=== PATIENT | female | born 1945 | race Caucasian/White ===

== ENCOUNTER → 2016-12-28 | Outpatient (CLI) | payer MEDICARE ==
--- NOTE | 2016-12-28 14:22 | XR ---
EXAMINATION TYPE: XR chest 2V DATE OF EXAM: 12/28/2016 2:18 PM COMPARISON: 03/19/2013 INDICATION: Acute bronchitis TECHNIQUE: 2 view chest FINDINGS: The heart size is normal. The pulmonary vasculature is normal. The lungs are clear. IMPRESSION: 1. No acute pulmonary process.
--- NOTE | 2016-12-28 16:41 | BD ---
EXAMINATION TYPE: MG DEXA axial skeleton. DATE OF EXAM: 12/28/2016 2:07 PM CLINICAL HISTORY: Height: 64 inch Weight: 134 FRAX RISK QUESTIONS: Alcohol (3 or more units per day): no Family History (Parent hip fracture): no Glucocorticoids (More than 3mos): no (Ex: prednisone, prednisolone, methylprednisolone, dexamethasone, and hydrocortisone). History of Fracture in Adulthood: yes, both lower legs Secondary Osteoporosis: 1. Type 1 Diabetes: no 2. Hyperthyroidism: no 3. Menopause before 45: yes, hysterectomy age 34 4. Malnutrition: no 5. Chronic liver disease: no Rheumatoid Arthritis: no Current Tobacco Use: no RISK FACTORS HISTORY OF: History of Fracture: yes When: both lower legs... one in 2009 & the other in 2010 about age 64 & 65 Family History of Osteoporosis: perhaps aunt on paternal side Drink Alcohol: occasionally glass of wine Active: yes Diet low in dairy products/other sources of calcium: at least one serving a day Postmenopausal woman: yes Take estrogen and/or progesterone medications: no Lost more than 2 inches in height since high school: no Frequent falls: no Poor Health: no Hyperparathyroidism: no Adrenal Insufficiency: no MEDICATIONS: Prednisone or other steroids: no Thyroid Medications: no Osteoporosis Medications: not now Which medication: unsure How Long: only tried once, had reaction Additional Medications: blood pressure, cholesterol EXAM MEASUREMENTS: Bone mineral densitometry was performed using the [employer] System. Bone mineral density as measured about the Lumbar spine is: ----- L1-L4(G/cm2): 1.291 T Score Values are as follows: ----- L2: 1.4 ----- L3: 3.7 ----- L4: 0.6 ----- L1-L4: 0.9 Bone mineral density has: Increased 18.3% since study of: 09/26/2002 Bone mineral density about the R hip (g/cm2): 0.842 Bone mineral density about the L hip (g/cm2): 0.865 T Score values are as follows: -----R Neck: -1.4 -----L Neck: -1.2 -----R Intertrochanter: -0.9 -----L Intertrochanter: -0.8 Bone mineral density has: Increased 0.9% since study of: 09/26/2002 IMPRESSION: 1. Osteopenia (T Score between -2.5 and -1 as noted by T score values There is slightly increased risk of fracture and the patient may be considered for treatment. Re-Screen 1-2 years. 2. Bone density is improved 18.3% within the lumbar spine from 09/26/2002. Bone density is improved 0. 9% within the bilateral hips compared to 2002 NOTE: T-SCORE=SD OF THE YOUNG ADULT MEAN.
--- NOTE | 2016-12-30 12:01 | MM ---
Reason for exam: screening (asymptomatic). Last mammogram was performed 1 year and 1 month ago. History: Patient is postmenopausal. Physical Findings: A clinical breast exam by your physician is recommended on an annual basis and results should be correlated with mammographic findings. MG 3D Screening Mammo W/Cad Bilateral CC and MLO view(s) were taken. Prior study comparison: December 01, 2015, bilateral MG screening mammo w CAD. November 28, 2014, bilateral MG screening mammo w CAD. November 04, 2013, bilateral digital screening mammo w/CAD. The breast tissue is heterogeneously dense. This may lower the sensitivity of mammography. No significant changes when compared with prior studies. ASSESSMENT: Negative, BI-RAD 1 RECOMMENDATION: Routine screening mammogram of both breasts in 1 year.
== END | disposition home or self-care (01) ==
LOC: RADMAMWWP 13:13
PROVIDERS: ATTEND Internal Medicine
DX: Z12.31 Encounter for screening mammogram for malignant neoplasm of breast (principal); J20.9 Acute bronchitis, unspecified; M85.80 Other specified disorders of bone density and structure, unspecified site
CPT/HCPCS: 71020; 77080; 77063; G0202

== ENCOUNTER → 2018-01-26 | Outpatient (CLI) | payer MEDICARE ==
--- NOTE | 2018-01-30 14:37 | MM ---
Reason for exam: screening (asymptomatic). Last mammogram was performed 1 year and 1 month ago. History: Patient is postmenopausal. Physical Findings: A clinical breast exam by your physician is recommended on an annual basis and results should be correlated with mammographic findings. MG 3D Screening Mammo W/Cad Bilateral CC and MLO view(s) were taken. Prior study comparison: December 28, 2016, bilateral MG 3d screening mammo w/cad. December 01, 2015, bilateral MG screening mammo w CAD. The breast tissue is heterogeneously dense. This may lower the sensitivity of mammography. There are typically benign round calcifications in both breasts. There is chronic nodularity in the left breast. Asymmetric breast tissue in the left medial position, stable. There is no discrete abnormality. ASSESSMENT: Benign, BI-RAD 2 RECOMMENDATION: Routine screening mammogram of both breasts in 1 year.
== END | disposition home or self-care (01) ==
LOC: RADMAMWWP 08:33
PROVIDERS: ATTEND Internal Medicine
DX: Z12.31 Encounter for screening mammogram for malignant neoplasm of breast (principal)
CPT/HCPCS: 77063; 77067

== ENCOUNTER → 2018-06-29 | Outpatient (CLI) | payer MEDICARE ==
--- NOTE | 2018-06-29 11:21 | XR ---
EXAMINATION TYPE: XR cervical spine comp DATE OF EXAM: 06/29/2018 CLINICAL HISTORY: pain COMPARISON: NONE TECHNIQUE: Frontal, lateral, oblique, swimmers, and open mouth view of the cervical spine are obtaine d. FINDINGS: The cervical spine is visualized in its entirety from C1 thru the top of T1 level. It is s atisfactory in alignment without evidence of acute fracture or dislocation. The pre-vertebral soft t issue appears within normal limits. Severe degenerative narrowing noted at C3-4 and C5-6. Ventral and dorsal spondylosis. The C1-C2 articulation is unremarkable on the open mouth view. The oblique imag es are within normal limits. IMPRESSION: No acute fracture or dislocation is seen in the cervical spine. ICD 10 NO FRACTURE, INITIAL EVALUATION
== END | disposition home or self-care (01) ==
LOC: RADXRMAIN 10:03
PROVIDERS: ATTEND Internal Medicine
DX: M47.892 Other spondylosis, cervical region (principal)
CPT/HCPCS: 72050

== ENCOUNTER → 2018-07-31 | Outpatient (CLI) | payer MEDICARE ==
--- NOTE | 2018-07-31 22:31 | MR ---
EXAMINATION TYPE: MR cervical spine wo con DATE OF EXAM: 07/31/2018 COMPARISON: None HISTORY: 72-year-old female with neck pain, Spondylosis TECHNIQUE: Multiplanar, multisequence images of the cervical spine were acquired. Findings: No craniocervical junction abnormality, predental space widening, or prevertebral soft tissue swellin g. A sclerotic Modic type II endplate changes at C5-C6 and to a lesser extent at C3-C4 with moderate mul tilevel degenerative disc disease characterized by disc desiccation, disc space narrowing, disc osteo phyte complex formation. Changes are greatest at C5-C6 and C3-C4. Multilevel facet and uncovertebral joint arthropathy with ligamentum flavum thickening. There is grade 1 retrolisthesis at C5-C6. At C2-C3, facet arthropathy particularly on the right causing mild neuroforaminal narrowing. No spina l canal stenosis. At C3-C4, there is disc osteophyte complex with contiguous uncovertebral joint and facet arthropathy, greater on the left. Changes result in moderate left and mild to moderate right neuroforaminal steno sis. There is overall mild spinal canal stenosis but without abutment or flattening of the cord. At C4-C5, uncovertebral joint and facet degenerative change without significant canal or foraminal st enosis. At C5-C6, broad-based discussed by complex with uncovertebral joint and facet degenerative changes as well as ligamentum flavum thickening. Changes result in moderate spinal canal stenosis with abutment and flattening of both the dorsal and ventral cord but no myelopathic cord signal change. Changes re sult in severe right and moderate to severe left neuroforaminal stenosis. At C6-C7, facet arthropathy without significant canal or foraminal stenosis. At C7-T1, facet arthropathy without significant canal or foraminal stenosis. No prevertebral or paravertebral soft tissue abnormality. IMPRESSION: 1. Moderate multilevel disc/endplate degenerative change. Additional multilevel facet and uncovertebr al joint arthropathy with ligamentum flavum thickening. 2. Changes result in grade 1 retrolisthesis at C5-C6 which also corresponds to the level of greatest degenerative disc disease. 3. At this level, C5-C6, there is a moderate spinal canal stenosis with abutment and flattening of jeff th the dorsal and ventral cord but no myelopathic cord signal change. 4. Mild overall spinal canal stenosis at C3-C4. 5. Variable neural foraminal stenoses as outlined above, moderate on the left at C3-C4, severe on the right at C5-C6, and moderate to severe on the left at C5-C6.
== END | disposition home or self-care (01) ==
LOC: RADMRIMAIN 07:06
PROVIDERS: ATTEND Internal Medicine
DX: M47.812 Spondylosis without myelopathy or radiculopathy, cervical region (principal); M48.02 Spinal stenosis, cervical region; M99.71 Connective tissue and disc stenosis of intervertebral foramina of cervical region; M46.92 Unspecified inflammatory spondylopathy, cervical region
CPT/HCPCS: 72141

== ENCOUNTER → 2019-01-24 | Outpatient (CLI) | payer MEDICARE ==
--- NOTE | 2019-01-24 15:40 | US ---
EXAMINATION TYPE: US carotid duplex BILAT DATE OF EXAM: 01/24/2019 COMPARISON: NONE CLINICAL HISTORY: I65.23 Occlusion and stenosis of bilateral carotid. HTN, No prev EXAM MEASUREMENTS: RIGHT: Peak Systolic Velocity (PSV) cm/sec ----- Right CCA: 73.8 ----- Right ICA: 75.6 ----- Right ECA: 97.4 ICA/CCA ratio: 1.0 RIGHT: End Diastole cm/sec ----- Right CCA: 23.2 ----- Right ICA: 30.2 ----- Right ECA: 10.6 LEFT: Peak Systolic Velocity (PSV) cm/sec ----- Left CCA: 77.6 ----- Left ICA: 85.3 ----- Left ECA: 94.1 ICA/CCA ratio: 1.1 LEFT: End Diastole cm/sec ----- Left CCA: 19.3 ----- Left ICA: 39.1 ----- Left ECA: 12.8 VERTEBRALS (direction of flow): Right Vertebral: Antegrade Left Vertebral: Antegrade Rhythm: Normal No wall thickening, elevated velocities or significant stenosis. Plaque seen in right distal CCA and bulb. IMPRESSION: Mild degree of grayscale atheromatous plaquing with no sonographically evident hemodynam ically significant stenosis within either visualized carotid arterial system. Criteria for Assigning % of Stenosis / Diameter reduction (Estimation based on the indirect measurements of the internal carotid artery velocities (ICA PSV). 1. Normal (no stenosis)=ICA PSV < 125 cm/s: ratio < 2.0: ICA EDV<40 cm/s. 2. Less than 50% stenosis=ICA PSV < 125 cm/s: ratio < 2.0: ICA EDV<40 cm/s. 3. 50 to 69% stenosis=ICA PSV of 125 to 230 cm/s: ration 2.0 ? 4.0: ICA EDV 40-100 cm/s. 4. Greater than 70% stenosis to near occlusion= ICA PSV > 230 cm/s: ratio > 4.0: ICA EDV > 100 cm/s. 5. Near occlusion= ICA PSV velocities may be low or undetectable: variable ratio and ICA EDV. 6. Total occlusion=unable to detect flow.
== END | disposition home or self-care (01) ==
LOC: RADUSWWP 14:42
PROVIDERS: ATTEND Internal Medicine
DX: I65.21 Occlusion and stenosis of right carotid artery (principal)
CPT/HCPCS: 93880

== ENCOUNTER → 2019-02-12 | Outpatient (CLI) | payer MEDICARE ==
--- NOTE | 2019-02-12 13:58 | BD ---
EXAMINATION TYPE: Axial Bone Density DATE OF EXAM: 02/12/2019 COMPARISON: 12/28/2016 CLINICAL HISTORY: M 80.0 Height: 64 Weight: 137.5 FRAX RISK QUESTIONS: Alcohol (3 or more units per day): no Family History (Parent hip fracture): no Glucocorticoids (More than 3mos): no (Ex: prednisone, prednisolone, methylprednisolone, dexamethasone, and hydrocortisone). History of Fracture in Adulthood: yes Secondary Osteoporosis: 1. Type 1 Diabetes: no 2. Hyperthyroidism: no 3. Menopause before 45: yes 4. Malnutrition: no 5. Chronic liver disease: no Rheumatoid Arthritis: no Current Tobacco Use: no RISK FACTORS HISTORY OF: Family History of Osteoporosis: yes Active: yes Diet low in dairy products/other sources of calcium: no Postmenopausal woman: age 34 hysterectomy Lost more than 2 inches in height since high school: no MEDICATIONS: hydralazine, metoprolol, hydrochlorothiazide, simvastatin Additional History: EXAM MEASUREMENTS: Bone mineral densitometry was performed using the [employer] System. Bone mineral density as measured about the Lumbar spine is: ----- L1-L4(G/cm2): 1.367 T Score Values are as follows: ----- L2: 0.8 ----- L3: 4.1 ----- L4: 3.2 ----- L1-L4: 1.6 Bone mineral density has: increased 6.8 % since study of: 12.28.2016 Bone mineral density about the R hip (g/cm2): 0.857 Bone mineral density about the L hip (g/cm2): 0.841 T Score values are as follows: -----R Neck: -1.3 -----L Neck: -1.4 -----R Total: -0.4 -----L Total: -0.4 Bone mineral density has: increased 1.7 % since study of: 12.28.2016 IMPRESSION: Osteopenia (T Score between -2.5 and -1). There is slightly increased risk of fracture and the patient may be considered for treatment. Re-Screen 2-5 years. NOTE: T-SCORE=SD OF THE YOUNG ADULT MEAN.
--- NOTE | 2019-02-13 10:42 | MM ---
Reason for exam: screening (asymptomatic). Last mammogram was performed 1 year and 1 month ago. History: Patient is postmenopausal. Physical Findings: A clinical breast exam by your physician is recommended on an annual basis and results should be correlated with mammographic findings. MG 3D Screening Mammo W/Cad Bilateral CC and MLO view(s) were taken. Prior study comparison: January 26, 2018, bilateral MG 3d screening mammo w/cad. December 28, 2016, bilateral MG 3d screening mammo w/cad. The breast tissue is heterogeneously dense. This may lower the sensitivity of mammography. No significant new finding when compared with prior studies. ASSESSMENT: Benign, BI-RAD 2 RECOMMENDATION: Routine screening mammogram of both breasts in 1 year.
== END | disposition home or self-care (01) ==
LOC: RADMAMWWP 12:59
PROVIDERS: ATTEND Internal Medicine
DX: Z12.31 Encounter for screening mammogram for malignant neoplasm of breast (principal); M85.851 Other specified disorders of bone density and structure, right thigh; M85.852 Other specified disorders of bone density and structure, left thigh
CPT/HCPCS: 77063; 77067; 77080

== ENCOUNTER → 2021-02-15 | Outpatient (CLI) | payer MEDICARE ==
--- NOTE | 2021-02-15 16:21 | BD ---
EXAMINATION TYPE: Axial Bone Density DATE OF EXAM: 02/15/2021 COMPARISON: 02/12/2019 DEXA bone scan. CLINICAL HISTORY: Postmenopausal female with osteoporosis. Height: 63 IN Weight: 136 LBS FRAX RISK QUESTIONS: History of Fracture in Adulthood: LT ANKLE FX AGE 64; RT ANKLE AGE 65 Secondary Osteoporosis: 3. Menopause before 45: PARTIAL HYST AGE 34 RISK FACTORS HISTORY OF: Active: YES Postmenopausal woman: PARTIAL HYST AGE 34 MEDICATIONS: Additional Medications: CALCIUM, HYDRALAZINE, LOSARTAN, HCTZ, SIMVASTATIN, METOPROLOL EXAM MEASUREMENTS: Bone mineral densitometry was performed using the [employer] System. Bone mineral density as measured about the Lumbar spine is: ----- L1-L4(G/cm2): 1.404 T Score Values are as follows: ----- L2: 1.4 ----- L3: 4.9 ----- L4: 2.8 ----- L1-L4: 1.9 Bone mineral density has: Increased 1.8% since study of: 02/12/2019 Bone mineral density about the R hip (g/cm2): 0.873 Bone mineral density about the L hip (g/cm2): 0.926 T Score values are as follows: -----R Neck: -1.2 -----L Neck: -0.8 -----R Total: -0.3 -----L Total: -0.1 Bone mineral density has: Increased 3.2% since study of: 02/12/2019 IMPRESSION: Osteopenia (T Score between -2.5 and -1) remains present. There remains slightly increased risk of fracture and the patient may be considered for treatment. Re-Screen 2-5 years. NOTE: T-SCORE=SD OF THE YOUNG ADULT MEAN.
--- NOTE | 2021-02-17 14:03 | MM ---
Reason for exam: screening (asymptomatic). Last mammogram was performed 2 years ago. History: Patient is postmenopausal. Physical Findings: A clinical breast exam by your physician is recommended on an annual basis and results should be correlated with mammographic findings. MG 3D Screening Mammo W/Cad Bilateral CC and MLO view(s) were taken. Prior study comparison: February 12, 2019, bilateral MG 3d screening mammo w/cad. January 26, 2018, bilateral MG 3d screening mammo w/cad. The breast tissue is heterogeneously dense. This may lower the sensitivity of mammography. ASSESSMENT: Negative, BI-RAD 1 RECOMMENDATION: Routine screening mammogram of both breasts in 1 year.
== END | disposition home or self-care (01) ==
LOC: RADMAMWWP 08:58
PROVIDERS: ATTEND Internal Medicine
DX: Z12.31 Encounter for screening mammogram for malignant neoplasm of breast (principal); Z78.0 Asymptomatic menopausal state; M85.80 Other specified disorders of bone density and structure, unspecified site; M81.8 Other osteoporosis without current pathological fracture
CPT/HCPCS: 77063; 77067; 77080

== ENCOUNTER → 2022-01-24 | Outpatient (CLI) | payer MEDICARE ==
--- NOTE | 2022-01-24 10:14 | XR ---
EXAMINATION TYPE: XR foot complete LT DATE OF EXAM: 01/24/2022 CLINICAL HISTORY: Recent rolling injury with pain and bruising. TECHNIQUE: Frontal, lateral, and oblique images of the left foot are obtained. COMPARISON: Prior left ankle x-ray July 31, 2011. FINDINGS: There is acute transverse nondisplaced intra-articular fracture through the base of fifth metatarsal. There is slight hallux valgus positioning first metatarsophalangeal joint with severe sherly rowing and subchondral cystic change. There is flexion in the distal toe is present. There is a later al fixating plate through a healed fracture of the lateral malleolus. Overlying soft tissue is unrema rkable. IMPRESSION: There is acute nondisplaced transverse intra-articular fracture through base of fifth me tatarsal. (Velasquez type fracture)
== END | disposition home or self-care (01) ==
LOC: RADXRMAIN 09:24
PROVIDERS: ATTEND Internal Medicine
DX: S92.355A Nondisplaced fracture of fifth metatarsal bone, left foot, initial encounter for closed fracture (principal)

== ENCOUNTER → 2022-09-13 | Outpatient (CLI) | payer MEDICARE ==
[2022-09-13 15:43] LABS: African American GFR (CKD) >90 (>60 ml/min/1.73 sqM); Blood Urea Nitrogen 16 mg/dL (7-17); Non-African American GFR(CKD) 89 (>60 ml/min/1.73 sqM)
--- NOTE | 2022-09-13 17:44 | XR ---
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 Additio nal flexion-extension views. FINDINGS: The osseous structures show normal alignment without evidence of an acute fracture. There are osteoph ytes noted throughout the cervical spine on the anterior and lateral aspects of the vertebral bodies. Findings are worse at C3-C4 and C5-C6 disc space narrowing. Pedicles are intact. Soft tissues are w ithin normal limits. The odontoid appears intact. Facet joint arthropathy throughout the spine worse at C5-C6 and C3-C4. Straightening on flexion and extension view suggesting reduced mobility. IMPRESSION: 1. No fracture or dislocation. 2. Moderate degenerative disc disease changes of the cervical spine at C3-C4 and C5-C6.
--- NOTE | 2022-09-13 18:39 | CT ---
EXAMINATION TYPE: CT abdomen pelvis w con CT DLP: 505.5 mGycm, Automated exposure control for dose reduction was used. DATE OF EXAM: 09/13/2022 5:17 PM COMPARISON: None CLINICAL INDICATION:Female, 76 years old with history of R10.32 LEFT LOWER QUADRANT PAIN; LLQ abdomen pain. TECHNIQUE: Axial CT of the abdomen and pelvis. Sagittal and coronal reformats were created on a [employer] workstation. Contrast used:100cc mL of Isovue 300 with IV Contrast, Oral contrast used: with Oral Contrast FINDINGS: LOWER CHEST: Unremarkable ABDOMEN LIVER: Unremarkable GALLBLADDER AND BILE DUCTS: Unremarkable. PANCREAS: Unremarkable. SPLEEN: Unremarkable. ADRENAL GLANDS: Unremarkable. KIDNEYS AND URETERS: No evidence of hydronephrosis or renal calculus. The ureters are unremarkable. PELVIS BLADDER: Urinary bladder is nondistended and grossly unremarkable. REPRODUCTIVE: Mildly complex cyst seen within the adnexa measuring 13.8 x 8.1 x 11.6 cm with thin sep tation noted. This appears to be coming from the left ovary. The uterus is not definitively visualize d. ABDOMEN & PELVIS STOMACH AND BOWEL: No evidence of bowel obstruction. PERITONEUM/RETROPERITONEUM: No evidence of pneumoperitoneum or free fluid. . VASCULATURE: No evidence of aortic aneurysm. Atherosclerosis of the arterial vasculature. MUSCULOSKELETAL: No acute osseous abnormalities LYMPH NODES: No gross evidence for lymphadenopathy. SOFT TISSUE/ABDOMINAL WALL: Unremarkable IMPRESSION: 1. Large adnexal cystic structure within septation felt to be coming from the left ovary measuring u p to 13.8 cm. Findings could represent ovarian cystic neoplasm such as serous or mucinous cystadenoma with carcinoma felt to be less likely. Surgical consultation recommended. No additional acute intra- abdominal process to explain the patient's left lower quadrant pain. 2. Diverticulosis.
== END | disposition home or self-care (01) ==
LOC: RADCTMAIN 14:39
PROVIDERS: ATTEND Internal Medicine
DX: M47.12 Other spondylosis with myelopathy, cervical region (principal); N83.8 Other noninflammatory disorders of ovary, fallopian tube and broad ligament; M50.021 Cervical disc disorder at C4-C5 level with myelopathy; K57.30 Diverticulosis of large intestine without perforation or abscess without bleeding; R10.32 Left lower quadrant pain
CPT/HCPCS: 82565; 84520; 72052; 74177; 36415; Q9967 ×2

== ENCOUNTER → 2023-02-16 | Outpatient (CLI) | payer MEDICARE ==
--- NOTE | 2023-02-16 14:53 | BD ---
EXAMINATION TYPE: Axial Bone Density DATE OF EXAM: 02/16/2023 CLINICAL HISTORY: 77 years old Female. ICD-10 CODE: M85.851 OSTEOPENIA RT HIP Height: 64 Weight: 129.3 FRAX RISK QUESTIONS: Alcohol (3 or more units per day): no Family History (Parent hip fracture): no Glucocorticoids (More than 3mos): no (Ex: prednisone, prednisolone, methylprednisolone, dexamethasone, and hydrocortisone). History of Fracture in Adulthood: yes Secondary Osteoporosis: 1. Type 1 Diabetes: no 2. Hyperthyroidism: no 3. Menopause before 45: yes 4. Malnutrition: no 5. Chronic liver disease: no Rheumatoid Arthritis: no Current Tobacco Use: no RISK FACTORS HISTORY OF: Surgery to Spine/Hip(right/left)/Wrist (right/left): no Family History of Osteoporosis: yes Active: yes Diet low in dairy products/other sources of calcium: yes Postmenopausal woman: yes Lost more than 2 inches in height since high school: no MEDICATIONS: Additional History: EXAM MEASUREMENTS: Bone mineral densitometry was performed using the [employer] System. Bone mineral density as measured about the Lumbar spine is: ----- L1-L4(G/cm2): 1.385 T Score Values are as follows: ----- L1: -1.8 ----- L2: 1.7 ----- L3: 4.2 ----- L4: 2.6 ----- L1-L4: 1.7 Z Score Values are as follows: ----- L1: 0.2 ----- L2: 3.7 ----- L3: 6.2 ----- L4: 4.6 ----- L1-L4: 3.7 Bone mineral density has: decreased -1.4 % since study of: 02.15.2021 Bone mineral density about the R hip (g/cm2): 0.987 Bone mineral density about the L hip (g/cm2): 1.003 T Score values are as follows: -----R Neck: -1.2 -----L Neck: -0.9 -----R Total: -0.2 -----L Total: 0.0 Z Score values are as follows: -----R Neck: 1.0 -----L Neck: 1.2 -----R Total: 1.9 -----L Total: 2.0 Bone mineral density has: increased 1.0 % since study of: 6.14.2020 FRAX%s: The graph provided illustrates a 16.0% chance for a major osteoporotic fx and a 3.0% chance f or the hips probability for fx in 10 years time. IMPRESSION: Normal (Values between +1 and -1 indicate normal bone mass). Consider repeating this study in 5 year s or sooner if there is some new clinical indication. NOTE: T-SCORE=SD OF THE YOUNG ADULT MEAN.
--- NOTE | 2023-02-19 18:43 | MM ---
Reason for Exam: Screening (asymptomatic). Last mammogram was performed 2 year(s) and 0 month(s) ago. Patient History: Menarche at age 12. First Full-Term at age 23. Left ovary removed at age 76. Right ovary removed at age 76. Hysterectomy at age 34. Postmenopausal. Risk Values: Tania 5 year model risk: 1.5%. NCI Lifetime model risk: 2.8%. Prior Study Comparison: 01/26/2018 Bilateral Screening Mammogram, [facility]. 02/12/2019 Bilateral Screening Mammogram, [facility]. 02/15/2021 Bilateral Screening Mammogram, [facility]. Tissue Density: The breast tissue is heterogeneously dense. This may lower the sensitivity of mammography. Findings: Analyzed By CAD. Bilateral areas of asymmetric density remain unchanged. There is no suspicious group of microcalcifications or new suspicious mass in either breast. Overall Assessment: Benign, BI-RAD 2 Management: Screening Mammogram of both breasts in 1 year. . Patient should continue monthly self-breast exams. A clinical breast exam by your physician is recommended on an annual basis. This exam should not preclude additional follow-up of suspicious palpable abnormalities. Note on Tania scores and lifetime risk: 1. A Tania score greater than 3% is considered moderate risk. If this is the case, consider specialist referral to assess eligibility for a risk reducing agent. 2. If overall lifetime risk for the development of breast cancer is 20% or higher, the patient may qualify for future screening with alternating mammogram and breast MRI. Electronically signed and approved by: Roberto Michelle M.D. Radiologist
== END | disposition home or self-care (01) ==
LOC: RADMAMWWP 12:26
PROVIDERS: ATTEND Internal Medicine
DX: Z12.31 Encounter for screening mammogram for malignant neoplasm of breast (principal); M85.851 Other specified disorders of bone density and structure, right thigh; Z78.0 Asymptomatic menopausal state
CPT/HCPCS: 77063; 77067; 77080

== ENCOUNTER → 2023-03-09 | Outpatient (CLI) | payer MEDICARE ==
--- NOTE | 2023-03-10 11:00 | MR ---
EXAMINATION TYPE: MR cervical spine wo con DATE OF EXAM: 03/09/2023 COMPARISON: 07/31/2018 HISTORY: Neck pain that that radiates down arms, left arm freezes up, difficulty rotating neck. CONTRAST: Performed utilizing 0 mL intravenous Gadavist gadolinium contrast. TECHNIQUE: Multiplanar multiecho imaging on a 3.0 Mireya magnet is performed through the cervical spin e. FINDINGS: The craniovertebral junction is normal. Vertebral body alignment is normal. T1-T2: There may be some left paracentral disc herniation with moderate anterior thecal sac compress ion. Correlate with left radicular symptoms. No cord contact is evident. No spinal canal stenosis pre sent C7-T1: No focal disc herniation or significant disc bulge is evident. No spinal canal stenosis or n eural foraminal stenosis is present. C6-7: No focal disc herniation or significant disc bulge is evident. No spinal canal stenosis or breanne ral foraminal stenosis is present. C5-6: There is loss of disc height is level. Mild posterior endplate spurring is present. In conjunct ion with the endplate spurring, Residual disc material has moderate anterior thecal sac compression. Cord contact is present. Spinal canal narrowing 0.6 cm is present. Some cord flattening may be presen t. Signal within the spinal cord at this level appears within normal limits. Severe right and moderat e left foraminal stenosis is present. Findings appear stable from comparison C4-5: No focal disc herniation or significant disc bulge is evident. No spinal canal stenosis or breanne ral foraminal stenosis is present. C3-4: Minimal disc bulges anterior thecal sac flattening. No spinal canal stenosis. Uncovertebral inna nt hypertrophy is moderate bilateral foraminal stenosis. No cord contact is evident.. C2-3: No focal disc herniation or significant disc bulge is evident. No spinal canal stenosis or breanne ral foraminal stenosis is present. IMPRESSIONS: 1. Degenerative disc changes C5-6. There is loss of disc height with endplate spurring and associated disc material contributing to spinal canal stenosis and cord flattening. Findings are stable from co mparison. 2. Note is made of a left paracentral to left lateral disc herniation T1-2, correlate with left radic ular symptoms.
== END | disposition home or self-care (01) ==
LOC: RADMRIMAIN 08:20
PROVIDERS: ATTEND Internal Medicine
DX: M47.12 Other spondylosis with myelopathy, cervical region (principal); M50.022 Cervical disc disorder at C5-C6 level with myelopathy; M51.24 Other intervertebral disc displacement, thoracic region
CPT/HCPCS: 72141

== ENCOUNTER → 2023-09-22 | Outpatient (CLI) | payer MEDICARE ==
[2023-09-22 10:08] LABS: African American GFR (CKD) >90 (>60 ml/min/1.73 sqM); Blood Urea Nitrogen 17 mg/dL (7-17); Non-African American GFR(CKD) 89 (>60 ml/min/1.73 sqM)
--- NOTE | 2023-09-22 11:00 | CT ---
EXAMINATION TYPE: CT angio head neck DATE OF EXAM: 09/22/2023 HISTORY: headaches, left arm numbness. Vascular headache COMPARISON: CT DLP: 1320.6 mGycm. Automated Exposure Control for Dose Reduction was Utilized. TECHNIQUE: CTA scan of the head and neck is performed with IV Contrast, patient injected with 65 mL of Isovue 370, axial images are obtained, coronal and sagittal reformatted images are reviewed. 3D re constructed images are created on an independent workstation and reviewed. FINDINGS: Carotid/Vascular Structures: Normal 3 vessel origins from aortic arch. No significant stenosis. No si gnificant stenosis in the common or internal carotid arteries bilaterally. Mild peripheral plaque at the bilateral carotid bulb level. Patent external carotid arteries bilaterally without significant st enosis. Codominant vertebral arteries are patent to the basilar junction. Patent right posterior comm unicating artery. Hypoplastic left posterior communicating artery. Hypoplastic left A1 segment with f illing of the A2 segment due to patent anterior communicating artery. No large vessel occlusion or an eurysm in the posterior circulation. Other: Bilateral aphakia is present. Levoconvex scoliosis centered in the lower cervical spine. There is grade 1 retrolisthesis of C5 on C6. Moderate to severe disc space narrowing at C3-C4 and C5-C6 le vels is present. IMPRESSION: No significant stenosis in common or internal carotid arteries bilaterally. No large ves la occlusion or aneurysm at the level of the [employer]. NASCET criteria was used in interpretation of this exam?
== END | disposition home or self-care (01) ==
LOC: RADCTMAIN 09:23
PROVIDERS: ATTEND Internal Medicine
DX: G44.1 Vascular headache, not elsewhere classified (principal)
CPT/HCPCS: 82565; 84520; 70496; 70498; 36415; Q9967

== ENCOUNTER → 2024-03-11 | Outpatient (CLI) | payer MEDICARE ==
--- NOTE | 2024-03-11 11:52 | MR ---
EXAMINATION TYPE: MR cervical spine wo con DATE OF EXAM: 03/11/2024 COMPARISON: 03/09/2023 HISTORY: 78-year-old female M47.12 Pain and numbness into keyonna extremities TECHNIQUE: Multiplanar, multisequence images of the cervical spine were acquired without contrast. FINDINGS: No craniocervical junction abnormality, predental space widening, or prevertebral soft tissue swellin g. Moderate disc/endplate degenerative changes present throughout with desiccated, narrowed common bulgi ng discs. Disc osteophyte complexes are redemonstrated. Multilevel facet and uncovertebral joint arthropathy is redemonstrated as well, greatest in the mid a nd lower thoracic spine. Some edematous Modic type I endplate changes present particularly at C5-C6 where the largest disc ost eophyte complex is present. Along with ligamentum flavum thickening, there is moderate focal spinal c anal stenosis with abutment and slight flattening of both the dorsal and ventral cord and AP canal di mension narrowed to 6 mm. This is relatively similar compared to 2022. No discrete abnormal T2-weighted cord signal abnormality is seen. Minimal narrowing of the spinal canal from discussed by complex at C3-C4 is also similar. Trace grade 1 retrolisthesis C3-C4 and C5-C6 is similar. At C3-C4, changes resulting in severe left and mild right neuroforaminal stenosis. At C5-C6 chronic changes result in moderate to severe bilateral neural foraminal stenosis. IMPRESSION: 1. Redemonstrated moderate spondylotic change throughout the cervical spine with degenerative trace g rade 1 retrolisthesis at C3-C4 and C5-C6. 2. Redemonstrated moderate focal spinal canal stenosis at C5-C6 with abutment and flattening of both the dorsal and ventral cord and AP canal dimension narrowed to 6 mm. No myelopathic cord signal dangelo e. 3. Severe left and mild right neuroforaminal stenosis at C3-C4. 4. Moderate to severe bilateral neuroforaminal stenosis at C5-C6.
== END | disposition home or self-care (01) ==
LOC: RADMRIMAIN 05:58
PROVIDERS: ATTEND Internal Medicine
DX: M47.812 Spondylosis without myelopathy or radiculopathy, cervical region (principal); M43.12 Spondylolisthesis, cervical region; M99.71 Connective tissue and disc stenosis of intervertebral foramina of cervical region
CPT/HCPCS: 72141

== ENCOUNTER → 2025-03-27 | Outpatient (CLI) | payer MEDICARE ==
[2025-03-27 07:23] LABS: African American GFR (CKD) >90 (>60 ml/min/1.73 sqM); Blood Urea Nitrogen 14 mg/dL (7-17); Non-African American GFR(CKD) 88 (>60 ml/min/1.73 sqM)
--- NOTE | 2025-03-27 08:49 | CT ---
EXAMINATION TYPE: CT abdomen pelvis w con DATE OF EXAM: 03/27/2025 8:23 AM COMPARISON: 09/13/2022 CLINICAL INDICATION: Female, 79 years old with history of R10.32 LLQ pain TECHNIQUE: CT of the abdomen and pelvis after IV contrast. Delayed images through the kidneys and sag ittal and coronal reformats were created on a separate workstation. Contrast used:100ml mL of Isovue 300 with IV Contrast, Oral contrast used: with Oral Contrast CT DLP: 408.20 mGycm, Automated exposure control for dose reduction was used. FINDINGS: LOWER CHEST: Strandy bibasilar atelectasis. ABDOMEN LIVER: 7 mm hypodensity inferior right liver lobe is unchanged suggesting a cyst. No other focal live r lesion. Portal venous system is patent. GALLBLADDER AND BILE DUCTS: Unremarkable. PANCREAS: Unremarkable. SPLEEN: Unremarkable. ADRENAL GLANDS: Unremarkable. KIDNEYS AND URETERS: No evidence of hydronephrosis or renal calculus. The ureters are unremarkable. PELVIS BLADDER: Mild/moderate circumferential bladder wall thickening may in part relate to nondistention. REPRODUCTIVE: Uterus appears surgically absent. Ovaries not distinctly visualized. No abnormal fluid collection in the pelvis or pelvic lymphadenopathy. ABDOMEN & PELVIS STOMACH AND BOWEL: No evidence of bowel obstruction. Oral contrast progressed to the rectum. Scattere d colonic diverticulosis. No pericolonic inflammatory changes seen. There is some excessive crowding of bowel within the pelvis which causes some limitation in assessment. PERITONEUM/RETROPERITONEUM: No evidence of pneumoperitoneum or free fluid. VASCULATURE: Mild atherosclerotic calcification abdominal aorta and moderate within the common iliac arteries. Suspected moderate segmental stenosis left common iliac artery. MUSCULOSKELETAL: Osteitis pubis. Severe degenerative disc disease L2-L3 and L3-L4. Moderate at L5-S1. Hypertrophic facet arthropathy mid to lower lumbar spine. Degenerated dextroconvex curvature lumbar spine. LYMPH NODES: No gross evidence for lymphadenopathy. SOFT TISSUE/ABDOMINAL WALL: Unremarkable IMPRESSION: 1. Generalized colonic diverticulosis, greatest in the sigmoid colon. There is excessive crowding of bowel within the pelvis causing some limitation in visualization. No evident findings of acute diver ticulitis. 2. Mild to moderate circumferential bladder wall thickening. Correlate to exclude cystitis. [facility], , 03/27/2025 8:47 AM
== END | disposition home or self-care (01) ==
LOC: RADCTMAIN 06:32
PROVIDERS: ATTEND Internal Medicine
DX: N32.89 Other specified disorders of bladder (principal); K57.30 Diverticulosis of large intestine without perforation or abscess without bleeding
CPT/HCPCS: 82565; 84520; 74177; 36415; Q9967